=== PATIENT | female | born 1950 | race Caucasian/White ===

== ENCOUNTER → 2017-03-30 | Outpatient (CLI) | payer MEDICARE, OTHER ==
[~2017-03-30] MED LIST: AMBIEN 5MG TABLE5 MG PO; ANUSOL-HC SUPPO25 MG RC; ARIMIDEX1 MG PO; ARMOUR THYROID90 MG PO; ASPIRIN 81M81 MG/TA2 PO; CALCIUM 600/VIT1 CAP PO; CIPRO 500MG TA500 MG PO; CO Q-1050 MG PO; DHEA25 MG PO; ESTRADIOL CREAM TOP; FISH OIL SUPER1 SGL PO; MELATONIN3 M1 PO; NIASPAN 500MG500 MG; NORCO 325 MG-7.1 TAB PO; PERCOCET 325 MG1 TA2 PO; PERCR 7.5 PO; PRILOSEC 20MG20 MG PO; PROGESTERONE TOP; RED RICE YEAST E0.4%; RESVERATROL; TESTOSTERONE CREAM TOP; TOVIAZ8 MG PO; VITAMIN D31000 IU PO; VITAMIND3 5000 PO; ZOFRAN8 MG PO
== END ==
LOC: MC.RAD 03-23 07:20
DX: Z12.31 Encounter for screening mammogram for malignant neoplasm of breast (principal); Z85.3 Personal history of malignant neoplasm of breast

== ENCOUNTER → 2017-10-16 | Outpatient (CLI) | payer MEDICARE, OTHER ==
[2017-10-16] VITALS (10 sets, daily range): BP systolic 138–161; BP diastolic 79–110; PULSE 63–75
[~2017-10-16] VITALS: Ht 162.6 cm; Wt 79.1 kg
== END ==
LOC: COL.RAD 06:24
DX: C50.511 Malignant neoplasm of lower-outer quadrant of right female breast (principal); M89.9 Disorder of bone, unspecified; M85.80 Other specified disorders of bone density and structure, unspecified site; Z98.890 Other specified postprocedural states; Z92.21 Personal history of antineoplastic chemotherapy; Z92.3 Personal history of irradiation
CPT/HCPCS: 27433

== ENCOUNTER → 2018-04-02 | Outpatient (CLI) | payer MEDICARE, OTHER | LOC: MC.RAD 09:10 | DX: Z12.31 Encounter for screening mammogram for malignant neoplasm of breast (principal); Z85.3 Personal history of malignant neoplasm of breast ==

== ENCOUNTER → 2019-06-17 | Outpatient (CLI) | payer MEDICARE, OTHER | LOC: COL.RAD 13:06 | DX: Z13.89 Encounter for screening for other disorder (principal); C50.511 Malignant neoplasm of lower-outer quadrant of right female breast; M79.89 Other specified soft tissue disorders; M25.562 Pain in left knee ==

== ENCOUNTER → 2020-06-21 | Outpatient (CLI) | payer MEDICARE, OTHER | LOC: COL.RAD 12:10 | DX: J90 Pleural effusion, not elsewhere classified (principal); C79.51 Secondary malignant neoplasm of bone; R92.2 Inconclusive mammogram; Z85.3 Personal history of malignant neoplasm of breast | CPT/HCPCS: Q9967 ==

== ENCOUNTER 2020-12-17 09:32 | Inpatient (IN) | payer MEDICARE, OTHER ==
[~2020-12-17] VITALS: Ht 162.6 cm; Wt 59.1 kg
[~2020-12-17 09:32] MED LIST changes: +CALCIUM CITRAT200 M2 PO; +DINO-LIFE1 CTB PO; +FORTAMET500 M1 PO; +FREESTYLE PREC1 EAC5 MC; +GLUCOSE TEST ST1 DEV MC; +LANCETS MC; +MELATONIN5 M1 PO; +ONE-A-DAY ESSE1 EACH PO; +PIQRAY1 EACH PO; +VITAMIN D 400400 IU PO; +VITAMIN D31000 I1 PO; +XARELTO15 MG PO; +XARELTO20 MG PO
[2020-12-17 10:21] LABS: BASO % 0.4 % (0.0-2.0); EOS # 0.1 (0.0-0.7); EOS % 0.9 % (0-4.0); GRAN # 8.8 (1.4-6.5); GRAN % 86.2 % (42.2-75.2); HEMOGLOBIN 12.2 g/dl (12.5-16.0); LYMPH # 0.5 (1.2-3.4); LYMPH % 5.1 % (20.0-51.0); MEAN CELL VOLUME 89 fl (80.0-100.0); MEAN CORPUSCULAR HEMOGLOBIN 30 pg (27.0-31.0); MEAN CORPUSCULAR HGB CONC 34 g/dl (33.0-37.0); MEAN PLATELET VOLUME 9.2 fl (7.4-10.4); MONO # 0.7 (0.1-0.6); MONO % 6.5 % (1.7-9.3); PLATELET COUNT 165 K/mm3 (130-400); RED BLOOD COUNT 4.04 M/mm3 (4.10-5.30); REDCELL DISTRIBUTION WIDTH-CV 13.6 % (11.5-14.5)
[2020-12-17 10:27] LABS: ALBUMIN 4.3 gm/dL (3.5-5.0); CALCIUM 9.4 mg/dL (8.4-10.2); CREATININE, serum 1.38 (0.52-1.25); HEMATOCRIT 36.1 % (37.0-47.0); POTASSIUM 4.4 mmol/L (3.4-5.0); TOTAL PROTEIN 7.2 gm/dL (6.4-8.2)
[2020-12-17 14:22] LABS: COLLECTION METHOD CLEAN CATCH
[2020-12-17 14:30] LABS: MUCOUS Present /lpf; PH 5 (5-8); SQUAMOUS EPITHELIAL 0-2 /hpf; URINE APPEARANCE Hazy; URINE BACTERIA Rare /hpf; URINE BILIRUBIN Negative (NEGATIVE); URINE BLOOD 1+ (NEGATIVE); URINE COLOR Yellow; URINE GLUCOSE 1+ (NEGATIVE); URINE KETONE 2+ (NEGATIVE); URINE LEUKOCYTE ESTERASE 1+ (NEGATIVE); URINE NITRATE Negative (NEGATIVE); URINE PROTEIN(semi-quant) 2+ (NEGATIVE); URINE UROBILINOGEN Negative (NEGATIVE)
[2020-12-17 14:36] LABS: BASO % 0.4 % (0.0-2.0); EOS % 0.3 % (0-4.0); GRAN # 9.4 (1.4-6.5); GRAN % 87.2 % (42.2-75.2); HEMATOCRIT 35.8 % (37.0-47.0); LYMPH # 0.7 (1.2-3.4); LYMPH % 6.1 % (20.0-51.0); MEAN CELL VOLUME 90 fl (80.0-100.0); MEAN CORPUSCULAR HEMOGLOBIN 30 pg (27.0-31.0); MEAN CORPUSCULAR HGB CONC 34 g/dl (33.0-37.0); MEAN PLATELET VOLUME 8.8 fl (7.4-10.4); MONO # 0.5 (0.1-0.6); MONO % 4.9 % (1.7-9.3); PLATELET COUNT 161 K/mm3 (130-400); RED BLOOD COUNT 3.96 M/mm3 (4.10-5.30); REDCELL DISTRIBUTION WIDTH-CV 13.9 % (11.5-14.5)
[2020-12-17 14:45] LABS: CALCIUM 9.3 mg/dL (8.4-10.2); CREATININE, serum 1.32 (0.52-1.25); POTASSIUM 4.4 mmol/L (3.4-5.0)
[2020-12-17] MEDS ORDERED: PRILOSEC 20MG20 MG PO (16:18)
[2020-12-17 16:59] VITALS: BP 161/67; PULSE 81; TEMP 100.4
--- NOTE | 2020-12-17 18:19 | NUR ---
Pt arrived to room 314. She is A/O x4. Her breathing is even and unlabored on RA. Pt denies SOB. Currently denies any N/V. Pt is shaky but denies pain. HR tachy. IV to LAC flushes without complications. POC discussed with patient who verbalizes understanding. No needs at this time. Call light within reach.
--- NOTE | 2020-12-17 20:30 | NUR ---
Initial shift assessment done- denies pain, denies SOB, denies nausea/vomiting- flushed, was just given Tylenol at shift change for a temp of 100.4,, states she just feels weak,tired,, IV fluids of LR at 80cc/hr
[2020-12-17 20:55] VITALS: BP 96/45; PULSE 83; TEMP 98.3
[2020-12-18] VITALS (10 sets, daily range): BP systolic 95–154; BP diastolic 43–96; PULSE 92–113; TEMP 97.8–102.6
--- NOTE | 2020-12-18 01:00 | NUR ---
Having low grade fevers with chills, Tylenol given--Silva RUSSO given a call regarding urine results and vitals-- will start on Rocephin.
--- NOTE | 2020-12-18 04:20 | NUR ---
Lab called with results of positive blood cultures, gm neg rods,, e.coli,, Silva RUSSO notified.
--- NOTE | 2020-12-18 05:56 | NUR ---
Temp 98.0,, resting quietly-
[2020-12-18 06:15] LABS: HEMOGLOBIN 10.1 g/dl (12.5-16.0); MEAN CELL VOLUME 88 fl (80.0-100.0); MEAN CORPUSCULAR HEMOGLOBIN 30 pg (27.0-31.0); MEAN CORPUSCULAR HGB CONC 34 g/dl (33.0-37.0); MEAN PLATELET VOLUME 9.1 fl (7.4-10.4); PLATELET COUNT 132 K/mm3 (130-400); RED BLOOD COUNT 3.38 M/mm3 (4.10-5.30); REDCELL DISTRIBUTION WIDTH-CV 13.9 % (11.5-14.5)
[2020-12-18 06:18] LABS: ALBUMIN 3.2 gm/dL (3.5-5.0); BILIRUBIN,TOTAL 0.6 mg/dL (0.0-1.0); CALCIUM 8.2 mg/dL (8.4-10.2); CREATININE, serum 1.52 (0.52-1.25); POTASSIUM 3.9 mmol/L (3.4-5.0); TOTAL PROTEIN 5.8 gm/dL (6.4-8.2)
[2020-12-18 06:35] LABS: HEMATOCRIT 29.8 % (37.0-47.0)
--- NOTE | 2020-12-18 08:30 | NUR ---
Shift assessment complete. Pt up to restroom independently, gait steady. LR running to left AC, IV site w/o S/S complication. A&Ox4. Heart RRR. Lungs CTA. Left leg with mild swelling, no redness/tenderness. Afebrile. Denies N/V at this time but reports worse when eating. Refuses breakfast at this time. Call light in reach.
[2020-12-18 08:32] LABS: ANISOCYTOSIS 1+; BAND 25 % (0-10); LYMPHOCYTE 3 % (20.0-51.0); NEUTROPHILS 68 % (42.0-75.2); PLATELET ESTIMATE NORMAL (NORMAL)
--- NOTE | 2020-12-18 10:10 | NUR ---
SW met with patient to conduct intake assessment. Patient lives at home in [place] with her Serge ([phone]). Serge is patient's DPOA-HC, and paperwork is on file. Patient sees Dr. Hunt as PCP and uses [facility] for pharmacy needs. Patient plans to return go to her daughter's house for a couple of days after discharge. This was onfirmed in person with daughter Charla (P#[phone]). Patient reported that her is anxious and dramatic, and this is why she will be staying with her daughter. Patient denies questions or concerns at this time. Patient will most likely discharge today 12/18.
--- NOTE | 2020-12-18 11:35 | NUR ---
Cat Swamper visited and offered support with patient. Nothing else needed at this time.
--- NOTE | 2020-12-18 18:03 | NUR ---
Pt rested in room w/o complaint all day. Did have one fever of 102.6 at 1600. Down to 99.9 at 1700 with tylenol. Daughter updated during in-person visit today.
--- NOTE | 2020-12-18 20:30 | NUR ---
Initial shift assessment done- denies pain, temp 98.9, denies SOB, Up to bathroom with standby assist-steady on feet, IV fluids of NS with 20MEQ KCL at 75cc/hr- States overall feeling better-no chills.
--- NOTE | 2020-12-18 22:05 | NUR ---
Pt chilling, flushed, temp 101.1,, tylenol given as ordered. Rocephin IV given as ordered at this time.
[2020-12-19 03:50] VITALS: BP 107/52; PULSE 85; TEMP 98.2
--- NOTE | 2020-12-19 05:31 | NUR ---
Up to bathroom, steady on feet, temp 98.8,, no requests
[2020-12-19 08:35] LABS: HEMATOCRIT 36.5 % (37.0-47.0); HEMOGLOBIN 11.7 g/dl (12.5-16.0); MEAN CELL VOLUME 94 fl (80.0-100.0); MEAN CORPUSCULAR HEMOGLOBIN 30 pg (27.0-31.0); MEAN CORPUSCULAR HGB CONC 32 g/dl (33.0-37.0); MEAN PLATELET VOLUME 9.6 fl (7.4-10.4); PLATELET COUNT 132 K/mm3 (130-400); RED BLOOD COUNT 3.88 M/mm3 (4.10-5.30); REDCELL DISTRIBUTION WIDTH-CV 14.3 % (11.5-14.5)
[2020-12-19 08:40] LABS: ALBUMIN 3.7 gm/dL (3.5-5.0); BILIRUBIN,TOTAL 0.7 mg/dL (0.0-1.0); CALCIUM 8.3 mg/dL (8.4-10.2); CREATININE, serum 1.3 (0.52-1.25); POTASSIUM 4.1 mmol/L (3.4-5.0); TOTAL PROTEIN 6.6 gm/dL (6.4-8.2)
[2020-12-19 08:53] VITALS: BP 144/69; PULSE 106; TEMP 99.3
--- NOTE | 2020-12-19 09:12 | NUR ---
Assessment completed, alert/oriented, vital signs stable / running intermittent low grade fevers, reporting headache and general malaise, Tylenol given per patient request, + Blood cx were reported to hospitalist, heart RRR, lungs CTA, tolerting PO fluid fair, IVF infusing, denies other needs at thistime, call light in reach
[2020-12-19 11:36] VITALS: BP 105/56; PULSE 87; TEMP 98.8
[2020-12-19 16:22] VITALS: BP 122/64; PULSE 96; TEMP 98.6
[2020-12-19 20:00] VITALS: BP 107/51; PULSE 103; TEMP 98.7
--- NOTE | 2020-12-19 20:00 | NUR ---
Assessment complete. At this time patient is resting in bed with NS and 20 meq K running into left a/c IV at 75 ml/hr. She is alert and oriented with no complaints of pain. Lung sounds are clear, HR normal/regular. Abdomen is slightly distended and firm but all bowel sounds are audible. Call light in reach, will continue to monitor.
--- NOTE | 2020-12-20 | NUR ---
Patient's temperature is 101.9 at this time. 650 mg PRN Tylenol administered. Will continue to monitor.
[2020-12-20 00:24] VITALS: BP 140/70; PULSE 109; TEMP 101.9
[2020-12-20 03:37] VITALS: BP 118/58; PULSE 87; TEMP 97.5
[2020-12-20 07:38] VITALS: BP 139/68; PULSE 84; TEMP 98.3
--- NOTE | 2020-12-20 07:43 | NUR ---
Assessment completed, alert/oriented, vital signs stable/continues to run intermittent fever overnight, she is feeling better and afebrile at this time, denies pain at this time, still reports some abdominal discomfort at times, denies any further N/V, heart RRR, lungs CTA/ no resp.difficulty noted, she is tolerating PO intake better and is ordering breakfast, denies other needs at this time
[2020-12-20 08:16] LABS: MEAN CORPUSCULAR HGB CONC 33 g/dl (33.0-37.0); MEAN PLATELET VOLUME 9.6 fl (7.4-10.4); PLATELET COUNT 117 K/mm3 (130-400); RED BLOOD COUNT 3.34 M/mm3 (4.10-5.30)
[2020-12-20 08:21] LABS: HEMATOCRIT 29.8 % (37.0-47.0); HEMOGLOBIN 9.9 g/dl (12.5-16.0); MEAN CORPUSCULAR HEMOGLOBIN 30 pg (27.0-31.0)
[2020-12-20 08:22] LABS: MEAN CELL VOLUME 89 fl (80.0-100.0)
[2020-12-20 08:32] LABS: ALBUMIN 2.7 gm/dL (3.5-5.0); BILIRUBIN,TOTAL 0.3 mg/dL (0.0-1.0); POTASSIUM 3.8 mmol/L (3.4-5.0); TOTAL PROTEIN 5.4 gm/dL (6.4-8.2)
[2020-12-20 09:31] LABS: BAND 11 % (0-10); EOSINOPHIL 1 % (0-4); LYMPHOCYTE 8 % (20.0-51.0); METAMYELOCYTE 1 % (0-0); NEUTROPHILS 68 % (42.0-75.2); NUCLEATED RED BLOOD CELL 1 (0-6); PLATELET ESTIMATE DECREASED (NORMAL)
[2020-12-20 11:57] VITALS: BP 128/68; PULSE 92; TEMP 98
--- NOTE | 2020-12-20 13:57 | NUR ---
First visit from the chief radiologic technologist. No needs right now.
[2020-12-20 16:28] VITALS: BP 117/47; PULSE 100; TEMP 99.6
--- NOTE | 2020-12-20 20:00 | NUR ---
Assessment complete. Patient complains of nausea at this time and PRN Reglan is administered. She states her pain is managed well at this time. IV fluids infusing into right a/c IV. No new concerns at this time. Call light in reach
[2020-12-20 20:44] VITALS: BP 130/74; PULSE 108; TEMP 101.8
[2020-12-21] VITALS (11 sets, daily range): BP systolic 103–124; BP diastolic 53–67; PULSE 77–93; TEMP 97.6–99.7
[2020-12-21 07:22] LABS: HEMOGLOBIN 10.6 g/dl (12.5-16.0); MEAN CELL VOLUME 90 fl (80.0-100.0); MEAN CORPUSCULAR HEMOGLOBIN 30 pg (27.0-31.0); MEAN CORPUSCULAR HGB CONC 34 g/dl (33.0-37.0); MEAN PLATELET VOLUME 10.3 fl (7.4-10.4); PLATELET COUNT 146 K/mm3 (130-400); REDCELL DISTRIBUTION WIDTH-CV 14.3 % (11.5-14.5)
[2020-12-21 07:29] LABS: HEMATOCRIT 31.4 % (37.0-47.0)
[2020-12-21 07:32] LABS: ALBUMIN 3.1 gm/dL (3.5-5.0); BILIRUBIN,TOTAL 0.4 mg/dL (0.0-1.0); CALCIUM 8.2 mg/dL (8.4-10.2); CREATININE, serum 0.95 (0.52-1.25); POTASSIUM 3.6 mmol/L (3.4-5.0); TOTAL PROTEIN 5.9 gm/dL (6.4-8.2)
[2020-12-21 08:11] LABS: BAND 4 % (0-10); EOSINOPHIL 5 % (0-4); LYMPHOCYTE 11 % (20.0-51.0); METAMYELOCYTE 1 % (0-0); NEUTROPHILS 66 % (42.0-75.2); PLATELET ESTIMATE NORMAL (NORMAL); SCHISTOCYTES 1+
--- NOTE | 2020-12-21 10:12 | NUR ---
Patient is going down for Csyto with stent placement at this time, consent signs, IVF and IV Pepcid given
--- NOTE | 2020-12-21 20:00 | NUR ---
Assessment complete. Patient is much more well-appearing tonight when compared to last night and states she is feeling so much better. Hare catheter is draining dark yellow urine. She has no complaints of pain and voices no new concerns. She is currently resting in bed. Call light in reach, will continue to monitor.
[2020-12-22 03:11] VITALS: BP 112/64; PULSE 69; TEMP 97.8
--- NOTE | 2020-12-22 07:10 | NUR ---
Patient resting in bed. Assessment as charted. Hare catheter intact with clear, yellow urine. INT to left forearm no reddness noted. Patient denies no pain, reports "feeling better today"
[2020-12-22 08:13] LABS: MEAN CELL VOLUME 88 fl (80.0-100.0); MEAN CORPUSCULAR HGB CONC 33 g/dl (33.0-37.0); MEAN PLATELET VOLUME 9.8 fl (7.4-10.4); PLATELET COUNT 162 K/mm3 (130-400); RED BLOOD COUNT 3.39 M/mm3 (4.10-5.30); REDCELL DISTRIBUTION WIDTH-CV 13.8 % (11.5-14.5)
[2020-12-22 08:15] LABS: CALCIUM 7.8 mg/dL (8.4-10.2); CREATININE, serum 0.94 (0.52-1.25); HEMATOCRIT 29.8 % (37.0-47.0); HEMOGLOBIN 9.9 g/dl (12.5-16.0); MEAN CORPUSCULAR HEMOGLOBIN 29 pg (27.0-31.0)
[2020-12-22 09:03] VITALS: BP 119/80; PULSE 84; TEMP 98.2
--- NOTE | 2020-12-22 09:28 | NUR ---
Pt assessment completed and charted, medications administered per mar. Pt A&O, independent in room, on room air, breathing is even and unlabored. Pt denies dizziness, n/v/d, chest pain, SOB. Pt has mckeon in place, draining clear, yellow urine. LAC INT IV flushes w/o issue. LS cta, HRRR. NO edema noted. Pt denies any further needs. Pt working w/ PT/OT.
--- NOTE | 2020-12-22 10:36 | NUR ---
[employer] Customer Representative attended clinical rounds with the team. After rounds, SW met with the patient to review the discharge plan. The plan is to go to her daughter's home as long as needed then transition home. ZION presented the IM form to the patient. The patient understood and signed the form. The original placed in the chart. The patient did not want a copy.
[2020-12-22 11:02] VITALS: BP 121/58; PULSE 83; TEMP 98
[2020-12-22 11:38] VITALS: BP 118/61; PULSE 82; TEMP 97.7
--- NOTE | 2020-12-22 12:14 | NUR ---
Follow up visit from the clam dredger. No needs right now.
[2020-12-22] MEDS ORDERED: CIPRO 500MG TA500 MG PO (12:31)
[2020-12-22] MEDS ORDERED: ZOFRAN ODT4 MG PO (12:33)
--- NOTE | 2020-12-22 14:15 | NUR ---
Pt mckeon ordered to be dc'd, pt to discharge. Removed by [facility] student w/ this nurse in room. LAC IV removed, cath tip intact, no issues. Pt has voided since removal of mckeon
--- NOTE | 2020-12-22 14:50 | NUR ---
Pt discharged home w/ daughter. Discharge instructions reviewed w/ patient and daughter who verbalized understanding, all questions answered. Pt escorted out via WC. NO further needs.
== END 2020-12-22 14:50 | disposition home or self-care (01) | DRG 854 ==
LOC: COL.ER 09:32 → MEDICAL 15:37
PROVIDERS: Family Medicine; Physician Assistant; Urology
PROC: 0T768DZ Dilation of Right Ureter with Intraluminal Device, Via Natural or Artificial Opening Endoscopic (ICD-10-PCS; principal; 2020-12-21 12:15)
DX: A41.51 Sepsis due to Escherichia coli [E. coli] (principal); C79.51 Secondary malignant neoplasm of bone; N17.9 Acute kidney failure, unspecified; N13.6 Pyonephrosis; R65.20 Severe sepsis without septic shock; C50.919 Malignant neoplasm of unspecified site of unspecified female breast; E11.65 Type 2 diabetes mellitus with hyperglycemia; N32.81 Overactive bladder; R60.1 Generalized edema; Z86.711 Personal history of pulmonary embolism; Z79.01 Long term (current) use of anticoagulants; Z79.84 Long term (current) use of oral hypoglycemic drugs; Z87.891 Personal history of nicotine dependence; Z20.822 Contact with and (suspected) exposure to COVID-19
CPT/HCPCS: OP; 99232-AI; 99233-AI; 99239; C1769; C2617; J0690; J0696; J1100; J1815; J2405; J2704; J3010; J3480; J7030; J7040; J7120; Q9967

== ENCOUNTER 2021-03-29 11:10 | Day surgery (SDC) | payer MEDICARE, OTHER ==
[~2021-03-29] VITALS: Ht 162.6 cm; Wt 59.5 kg
[~2021-03-29 11:10] MED LIST changes: +ZOFRAN ODT4 MG PO
[2021-03-29 12:03] VITALS: BP 115/52; PULSE 80; TEMP 98
[2021-03-29] MEDS ORDERED: LASIX 40MG TABL40 MG PO (12:58)
[2021-03-29] MEDS ORDERED: K-DUR20 MEQ PO (13:00)
[2021-03-29 14:11] VITALS: TEMP 98.9
[2021-03-29 14:20] VITALS: BP 119/60; PULSE 65
--- NOTE | 2021-03-29 14:20 | NUR ---
Patient returns to room 8 per cart from PACU accompanied by Katerin GROVER and is awake and alert. Temp 97.4 and room air sats 99%. Denies pain or nausea. Siderails up x2 and call light in reach. IV fluids infusing via left port a catheter site and is free of redness or swelling. Warm blankets on and allowed to rest.
[2021-03-29 14:35] VITALS: BP 106/55; PULSE 67
--- NOTE | 2021-03-29 14:35 | NUR ---
Resting and denies pain or nausea. Sipping on diet Pepsi.
[2021-03-29 14:50] VITALS: BP 127/62; PULSE 67
--- NOTE | 2021-03-29 14:50 | NUR ---
Eating muffin and denies pain or nausea.
[2021-03-29 15:05] VITALS: BP 133/64; PULSE 61
--- NOTE | 2021-03-29 15:05 | NUR ---
Resting and sipping on diet Pepsi. Continues to deny pain or nausea.
--- NOTE | 2021-03-29 15:20 | NUR ---
Assisted up to the bathroom and is able to void and returns to room. Denies pain or nausea.
--- NOTE | 2021-03-29 15:35 | NUR ---
Port a catheter flushed with normal saline and Heparin per protocol and deaccessed. Site covered with bandaid. Site is free of swelling or redness.
--- NOTE | 2021-03-29 15:50 | NUR ---
Patient is able to dress self.
--- NOTE | 2021-03-29 15:55 | NUR ---
Discharge instructions given and voices understanding of home cares. Provided office number for questions and concerns.
--- NOTE | 2021-03-29 15:59 | NUR ---
Patient dismissed to home driven by spouse and taken to the front door per wheelchair by Katerin GROVER and assisted into vehicle with dismissal instructions in hand.
[2021-04-07] MEDS ORDERED: XARELTO20 MG PO (08:56)
[2021-04-07] MEDS ORDERED: KLOR-CON SPRIN10 MEQ PO (08:59)
[2021-04-07] MEDS ORDERED: ABRAXANE100 MG IV (09:01)
[2021-04-07] MEDS ORDERED: XGEVA120 MG/1.7 SQ (09:02)
== END 2021-03-29 15:59 | disposition home or self-care (01) ==
LOC: SDCO 11:10
DX: N13.0 Hydronephrosis with ureteropelvic junction obstruction (principal); C50.911 Malignant neoplasm of unspecified site of right female breast; C79.51 Secondary malignant neoplasm of bone; D63.0 Anemia in neoplastic disease; N39.46 Mixed incontinence; K21.9 Gastro-esophageal reflux disease without esophagitis; N32.81 Overactive bladder; Z86.711 Personal history of pulmonary embolism; Z79.01 Long term (current) use of anticoagulants; Z79.899 Other long term (current) drug therapy
CPT/HCPCS: C1769; C2617; J0690; J1644; J2405; J2704; J3010; J7120

== ENCOUNTER → 2021-04-12 | Outpatient (CLI) | payer MEDICARE, OTHER ==
[~2021-04-12] VITALS: Ht 162.6 cm; Wt 62.5 kg
[~2021-04-12] MED LIST changes: +ABRAXANE100 MG IV; +K-DUR20 MEQ PO; +KEYTRUDA25 MG/ML IV; +KLOR-CON SPRIN10 MEQ PO; +LASIX 40MG TABL40 MG PO; +XGEVA120 MG/1.7 SQ
[2021-04-12 07:05] VITALS: BP 117/79; PULSE 87
[2021-04-12 07:48] VITALS: BP 154/88; PULSE 90
== END ==
LOC: COL.RAD 06:45
DX: C50.511 Malignant neoplasm of lower-outer quadrant of right female breast (principal); R59.9 Enlarged lymph nodes, unspecified
CPT/HCPCS: 32140

== ENCOUNTER → 2021-06-23 | Outpatient (CLI) | payer MEDICARE, OTHER | LOC: MC.RAD 11:13 | DX: Z12.31 Encounter for screening mammogram for malignant neoplasm of breast (principal); Z98.890 Other specified postprocedural states; Z92.3 Personal history of irradiation; Z98.82 Breast implant status ==

== ENCOUNTER → 2021-06-28 | Outpatient (CLI) | payer MEDICARE, OTHER | LOC: MC.RAD 11:00 | DX: R92.1 Mammographic calcification found on diagnostic imaging of breast (principal) ==

== ENCOUNTER 2021-09-22 13:37 | Day surgery (SDC) | payer MEDICARE, OTHER ==
[~2021-09-22] VITALS: Ht 162.6 cm; Wt 64.0 kg
[~2021-09-22 13:37] MED LIST changes: -KEYTRUDA25 MG/ML IV
[2021-09-22] MEDS ORDERED: KEYTRUDA25 MG/ML IV (14:14)
[2021-09-22 14:31] VITALS: BP 126/64; PULSE 71; TEMP 98
[2021-09-22 16:30] VITALS: BP 143/78; PULSE 70; TEMP 97.8
--- NOTE | 2021-09-22 16:30 | NUR ---
Patient arrived back into bay 8. Report received from LENORE Alberto. Patient doing well. Requesting diet pepsi and muffin. Tolerated both well with no complaint of nausea or vomiting. Patient at bedside.
[2021-09-22 16:45] VITALS: BP 149/82; PULSE 72; TEMP 97.8
--- NOTE | 2021-09-22 16:50 | NUR ---
Patient up to restroom. Up with stand by assist. Steady gait.
[2021-09-22 16:56] VITALS: BP 143/78; PULSE 70; TEMP 97.8
[2021-09-22 17:00] VITALS: BP 142/87; PULSE 77
--- NOTE | 2021-09-22 17:00 | NUR ---
Patient voided successful, noted scant blood drainage. Pad given. Patient got dressed after tolerating food and drink and voiding successfully. Stating no pain.
--- NOTE | 2021-09-22 17:05 | NUR ---
Discharge instructions went through with patient and patient's . Questions answered. Verbalized understanding to education. Patient and patient's escorted to emergency department.
== END 2021-09-22 17:10 | disposition home or self-care (01) ==
LOC: SDCO 13:37
DX: N13.0 Hydronephrosis with ureteropelvic junction obstruction (principal); C50.919 Malignant neoplasm of unspecified site of unspecified female breast; C79.51 Secondary malignant neoplasm of bone; K21.9 Gastro-esophageal reflux disease without esophagitis; D64.9 Anemia, unspecified; N32.81 Overactive bladder; Z85.830 Personal history of malignant neoplasm of bone; Z79.4 Long term (current) use of insulin; Z79.899 Other long term (current) drug therapy; Z79.01 Long term (current) use of anticoagulants; Z92.21 Personal history of antineoplastic chemotherapy
CPT/HCPCS: C2617; J0690; J1100; J2405; J2704; J3010; J7120

== ENCOUNTER → 2022-06-26 | Outpatient (CLI) | payer MEDICARE, OTHER ==
[~2022-06-26] MED LIST changes: +KEYTRUDA25 MG/ML IV
== END ==
LOC: MC.RAD 10:06
DX: Z12.31 Encounter for screening mammogram for malignant neoplasm of breast (principal)

== ENCOUNTER 2022-12-26 06:27 | Day surgery (SDC) | payer MEDICARE, OTHER ==
[~2022-12-26] VITALS: Ht 162.6 cm; Wt 69.1 kg
[2022-12-26 07:27] VITALS: BP 118/64; PULSE 76; TEMP 98
[2022-12-26] MEDS ORDERED: PHARMASSURE ZIN50 MG PO (07:40)
[2022-12-26] MEDS ORDERED: CALCIUM 600MG+D1 TAB PO (07:40)
[2022-12-26] MEDS ORDERED: XGEVA120 MG/1.7 SQ (07:43)
[2022-12-26 09:45] VITALS: BP 118/46; PULSE 64; TEMP 97.9
[2022-12-26 10:00] VITALS: BP 115/75; PULSE 64
[2022-12-26 10:15] VITALS: BP 114/74; PULSE 66
[2022-12-26 10:30] VITALS: BP 110/54; PULSE 64
[2022-12-26 10:40] VITALS: BP 112/56; PULSE 64
--- NOTE | 2022-12-26 11:00 | NUR ---
0945 RETURNS TO ROOM 7. AWAKE, ALERT. RESP CLEAR, UNLABORED. HOB ELEVATED 40 DEGREES. VITAL SIGNS OBTAINED. DENIES PAIN OR URINARY URGENCY. CALL LIGHT AT SIDE. IN ROOM. 1000 TOLERATES JUICE AND MUFFIN WITHOUT NAUSEA 1015 AWAKE, ALERT. CONVERSES WITH . 1030 DONTINUES TO DENY DISCOMFORT OR URINARY URGENCY 1037 DISCHARGE INSTRUCTIONS REVIEWED. PATIENT AND VERBALIZE UNDERSTANDING. COPY PROVIDED IN DISCHARGE FOLDER 1045 SITS ON EDGE OF BED. DRESSES SELF. 1050 AMBULATES TO BATHROOM WITH STANDBY ASSIST. ADMITS TO VOIDING WITHOUT DIFFICULTY. REPORTS URINE IS LIGHT PINK
== END 2022-12-26 11:00 | disposition home or self-care (01) ==
LOC: SDCO 06:27
DX: N13.0 Hydronephrosis with ureteropelvic junction obstruction (principal); K21.9 Gastro-esophageal reflux disease without esophagitis; Z79.899 Other long term (current) drug therapy
CPT/HCPCS: C1769; C2617; J0690; J1885; J2405; J2704; J7120; Q9967

== ENCOUNTER 2023-12-04 11:34 | Day surgery (SDC) | payer MEDICARE ==
[~2023-12-04] VITALS: Ht 162.6 cm; Wt 71.7 kg
[~2023-12-04 11:34] MED LIST changes: +CALCIUM 600MG+D1 TAB PO; +LINZESS72 MCG PO; +LR 1,000 ML IV SCH; +PHARMASSURE ZIN50 MG PO
[2023-12-04] MEDS ORDERED: Lidocaine PF 2% (20 MG/ML) 5 ML VIAL IV ONE (12:17)
[2023-12-04] MEDS ORDERED: NS 10 ML VIAL IV ONE (12:17)
[2023-12-04] MEDS ORDERED: dexAMETHasone 10 MG/ML VIAL IV ONE (12:17)
[2023-12-04] MEDS ORDERED: Ondansetron 4 MG/2 ML VIAL IV ONE (12:17)
[2023-12-04] MEDS ORDERED: fentaNYL 50 MCG/ML 2 ML VIAL IV ONE (12:17)
[2023-12-04] MEDS ORDERED: Glycopyrrolate 0.2 MG/ML 1 ML VIAL IV ONE (12:17)
[2023-12-04] MEDS ORDERED: Succinylcholine PF 100 MG/5 ML SYRINGE/POLY AMP IV ONE (12:31)
[2023-12-04] MEDS ORDERED: Lidocaine PF 2% (20 MG/ML) 5 ML VIAL ONE (12:31)
[2023-12-04] MEDS ORDERED: GEMTESA75 MG PO (12:35)
[2023-12-04] MEDS ORDERED: CO Q 10 (12:36)
[2023-12-04] MEDS ORDERED: OMEGA-31 SGL PO (12:38)
[2023-12-04] MEDS ORDERED: TUMERIC (12:38)
[2023-12-04 12:45] VITALS: BP 131/70; PULSE 68; TEMP 97.9
[2023-12-04] MEDS ORDERED: Lidocaine 2% (20 MG/ML) 20 ML UROJET UR ONE (12:49)
[2023-12-04] MEDS ORDERED: MACROBID 1100 MG/CAP PO (13:33)
[2023-12-04] MEDS ORDERED: HYDROmorphone 2 MG/1 ML VIAL IV PRN (14:00)
[2023-12-04] MEDS ORDERED: fentaNYL 50 MCG/ML 2 ML VIAL IV PRN (14:00)
[2023-12-04] MEDS ORDERED: Ondansetron 4 MG/2 ML VIAL IV PRN (14:00)
[2023-12-04 14:05] VITALS: BP 104/88; PULSE 64; TEMP 97.6
[2023-12-04 14:20] VITALS: BP 117/71; PULSE 60
[2023-12-04 14:35] VITALS: BP 126/58; PULSE 64
[2023-12-04 14:55] VITALS: BP 109/73; PULSE 64
--- NOTE | 2023-12-04 15:05 | NUR ---
1405 RETURNS TO ROOM 1 PER CART. AWAKE, ALERT. RESP UNLABORED. HOB ELEVATED 50 DEGREES. DENIES ABD PAIN OR URINARY URGENCY. VITAL SIGNS OBTAINED. CALL LIGHT AT SIDE 1420 TOLERATES PO JUICE WITHOUT NAUSEA 1435 HERE 1440 TOLERATES PO MUFFIN WITHOUT NAUSEA DISCHARGE INSTRUCTIONS REVIEWED. PATIENT VERBALIZES UNDERSTANDING. COPY PROVIDED IN DISCHARGE FOLDER 1072 SITS ON EDGE OF BED. DRESSES SELF, THEN AMBULATES TO BATHROOM WITH STANDBY ASSIST. ADMITS TO VOIDING WITHOUT PAIN OR DIFFICULTY
== END 2023-12-04 15:05 | disposition home or self-care (01) ==
LOC: SDCO 11:34
DX: N13.0 Hydronephrosis with ureteropelvic junction obstruction (principal); N21.0 Calculus in bladder; Z85.830 Personal history of malignant neoplasm of bone; Z85.3 Personal history of malignant neoplasm of breast
CPT/HCPCS: C1769; C2617; J0330; J0690; J1100; J2405; J2704; J3010; J7120

== ENCOUNTER → 2024-03-13 | Day surgery (SDC) | payer MEDICARE, OTHER ==
[~2024-03-13] VITALS: Ht 162.6 cm; Wt 71.0 kg
[~2024-03-13] MED LIST changes: +CO Q 10; +GEMTESA75 MG PO; +Glycopyrrolate 0.2 MG/ML 1 ML VIAL IV ONE; +Hyoscyamine 0.125 MG Sublingual TAB SL PRN; +LR 1,000 ML IV PRN; +Lidocaine 2% (20 MG/ML) 20 ML UROJET UR ONE; +Lidocaine PF 2% (20 MG/ML) 5 ML VIAL IV ONE; +MACROBID 1100 MG/CAP PO; +OMEGA-31 SGL PO; +Ondansetron 4 MG/2 ML VIAL IV ONE; +Propofol 10 MG/ML 10 ML VIAL IV ONE; +TUMERIC; +ceFAZolin 2 G VIAL IV ONE; +oxyCODONE/Acetaminophen 5-325 MG TAB PO PRN
[2024-03-17 14:09] VITALS: BP 125/74; PULSE 72; TEMP 98.3
--- NOTE | 2024-03-17 14:27 | NUR ---
Due to downtime, documentation completed post-care by Tyesha Moreno RN. Refer to scanned fowntime paper documentation for full care.
== END ==
LOC: SDCO 12:36
DX: N13.0 Hydronephrosis with ureteropelvic junction obstruction (principal); K21.9 Gastro-esophageal reflux disease without esophagitis; Z85.3 Personal history of malignant neoplasm of breast; Z86.711 Personal history of pulmonary embolism; Z85.830 Personal history of malignant neoplasm of bone; Z79.01 Long term (current) use of anticoagulants; Z79.899 Other long term (current) drug therapy
CPT/HCPCS: C1769; C2617; J0690; J2405; J2704; J7120

== ENCOUNTER 2024-05-29 13:55 | Day surgery (SDC) | payer MEDICARE, OTHER ==
[~2024-05-29] VITALS: Ht 162.6 cm; Wt 71.2 kg
[~2024-05-29 13:55] MED LIST changes: -Glycopyrrolate 0.2 MG/ML 1 ML VIAL IV ONE; -Hyoscyamine 0.125 MG Sublingual TAB SL PRN; -LR 1,000 ML IV PRN; -Lidocaine 2% (20 MG/ML) 20 ML UROJET UR ONE; -Lidocaine PF 2% (20 MG/ML) 5 ML VIAL IV ONE; +Meclizine 25 MG TAB PO SCH; -Ondansetron 4 MG/2 ML VIAL IV ONE; -Propofol 10 MG/ML 10 ML VIAL IV ONE; -ceFAZolin 2 G VIAL IV ONE; -oxyCODONE/Acetaminophen 5-325 MG TAB PO PRN
[2024-05-29 15:01] VITALS: BP 138/66; PULSE 75; TEMP 97.1
[2024-05-29] MEDS ORDERED: TRIMPEX100 MG PO (15:08)
[2024-05-29] MEDS ORDERED: TURMERIC500 MG PO (15:08)
[2024-05-29] MEDS ORDERED: THE MEDICINE S200 M2 PO (15:09)
[2024-05-29] MEDS ORDERED: HYDROmorphone 1 MG/1 ML SYRINGE [PACU/SDC ONLY] IV PRN (15:15)
[2024-05-29] MEDS ORDERED: Meperidine 50 MG/ML 1 ML VIAL IV PRN (15:15)
[2024-05-29] MEDS ORDERED: Ondansetron 4 MG/2 ML VIAL IV PRN (15:15)
[2024-05-29] MEDS ORDERED: hydrALAZINE 20 MG/ML 1 ML VIAL IV PRN (15:15)
[2024-05-29] MEDS ORDERED: fentaNYL 50 MCG/ML 1 ML SYRINGE/VIAL [PACU/SDC ONLY] IV PRN (15:15)
[2024-05-29] MEDS ORDERED: Lidocaine 2% (20 MG/ML) 20 ML UROJET UR ONE (15:55)
[2024-05-29 16:45] VITALS: BP 122/72; PULSE 60; TEMP 97.3
[2024-05-29 17:00] VITALS: BP 125/67; PULSE 62
--- NOTE | 2024-05-29 17:20 | NUR ---
1645-PT TO BAY 2 PER CART FROM PACU. REPORT RECEIVED. VS OBTAINED. CALL LIGHT WITHIN REACH. PT TOLERATING ICE CHIPS. 1650-PT TOLERATING JUICE WITHOUT DIFFICULTY. 1705-IV DC'D AT THIS TIME. 1710-DISCHARGE EDUCATION COMPLETED WITH PT AND HER . VERBALIZED UNDERSTANDING OF HOME AND FOLLOW UP CARE. ALL QUESTIONS ANSWERED. DISCHARGE PAPERWORK GIVEN TO THE . 1715-PT ABLE TO DRESS SELF WITHOUT ASSISTANCE. 1720-PT OFF UNIT PER WHEELCHAIR. PT DISCHARGED TO HOME WITH HER PER PERSONAL VEHICLE.
== END 2024-05-29 17:20 | disposition home or self-care (01) ==
LOC: SDCO 13:55
DX: Q62.11 Congenital occlusion of ureteropelvic junction (principal); N21.0 Calculus in bladder; C50.911 Malignant neoplasm of unspecified site of right female breast; C79.51 Secondary malignant neoplasm of bone; K21.9 Gastro-esophageal reflux disease without esophagitis; Z79.899 Other long term (current) drug therapy
CPT/HCPCS: C1769; C2617; J7120

== ENCOUNTER 2024-06-16 07:01 | Emergency (ER) | payer MEDICARE, OTHER ==
[~2024-06-16] VITALS: Ht 162.6 cm; Wt 71.8 kg
[~2024-06-16 07:01] MED LIST changes: -LR 1,000 ML IV SCH; -Meclizine 25 MG TAB PO SCH; +THE MEDICINE S200 M2 PO; +TRIMPEX100 MG PO; +TURMERIC500 MG PO
[2024-06-16] MEDS ORDERED: fentaNYL 50 MCG/ML 2 ML VIAL IV ONE (07:45)
[2024-06-16] MEDS ORDERED: Ketorolac 15 MG/ML VIAL IV ONE (07:45)
[2024-06-16 08:02] VITALS: TEMP 97.5
[2024-06-16 08:19] LABS: BASO % 0.3 % (0.0-2.0); EOS # 0.1 K/mm3 (0.0-0.7); EOS % 2.3 % (0.0-4.0); GRAN # 2.1 K/mm3 (1.4-6.5); GRAN % 67.4 % (42.2-75.2); HEMOGLOBIN 11.2 g/dl (12.5-16.0); LYMPH # 0.6 K/mm3 (1.2-3.4); LYMPH % 18.7 % (20.0-51.0); MEAN CELL VOLUME 88 fl (80.0-100.0); MEAN CORPUSCULAR HEMOGLOBIN 29 pg (27-31); MEAN CORPUSCULAR HGB CONC 32 g/dl (33.0-37.0); MEAN PLATELET VOLUME 9.2 fl (7.4-10.4); MONO # 0.3 K/mm3 (0.1-0.6); PLATELET COUNT 191 K/mm3 (130-400); RED BLOOD COUNT 3.92 M/mm3 (4.10-5.30); REDCELL DISTRIBUTION WIDTH-CV 15.7 % (11.5-14.5)
[2024-06-16 08:20] LABS: HEMATOCRIT 34.6 % (37.0-47.0)
[2024-06-16] MEDS ORDERED: NS 1,000 ML IV ONE (08:30)
[2024-06-16] MEDS ORDERED: Ondansetron 4 MG/2 ML VIAL IV ONE (08:30)
[2024-06-16 08:40] LABS: ALBUMIN 3.7 g/dL (3.4-4.8); BILIRUBIN,TOTAL 0.4 mg/dL (0.2-1.2); C-REACTIVE PROTEIN 0.35 mg/dL (0.00-0.50); CALCIUM 8.7 mg/dL (8.4-10.2); CREATININE, serum 1.07 mg/dL (0.57-1.11); POTASSIUM 3.9 mEq/L (3.5-4.5); TOTAL PROTEIN 6.4 g/dl (6.2-8.1)
[2024-06-16] MEDS ORDERED: Iohexol 300 - 100 ML VIAL IV ONE (09:17)
[2024-06-16] MEDS ORDERED: NS 100 ML IV SCH (09:18)
[2024-06-16 10:18] LABS: COLLECTION METHOD CLEAN CATCH
[2024-06-16 10:42] LABS: PH 7.5 (5.0-8.5); URINE APPEARANCE CLEAR (CLEAR/HAZY); URINE COLOR YELLOW (YELLOW); URINE PROTEIN(semi-quant) NEGATIVE (NEGATIVE)
[2024-06-16 10:43] LABS: URINE BLOOD TRACE-INTACT (NEGATIVE); URINE GLUCOSE TRACE (NEGATIVE); URINE KETONE NEGATIVE (NEGATIVE); URINE NITRATE POSITIVE (NEGATIVE); URINE UROBILINOGEN 0.2 E.U/dL (0.2-1.0)
[2024-06-16] MEDS ORDERED: oxyCODONE/Acetaminophen 5-325 MG TAB PO ONE (11:30)
[2024-06-16] MEDS ORDERED: cefTRIAXone 1 G in Water For Injection,Sterile 10 ML IV ONE (11:30)
[2024-06-16] MEDS ORDERED: CEPHALEXIN500 M1 PO (11:48)
[2024-06-16] MEDS ORDERED: ZOFRAN ODT4 MG PO (11:48)
[2024-06-16] MEDS ORDERED: PERCOCET 325 MG1 TA2 PO (11:48)
[2024-06-16 12:13] VITALS: BP 135/74; PULSE 72
== END 2024-06-16 12:15 | disposition home or self-care (01) ==
LOC: COL.ER 07:01
PROVIDERS: Emergency Medicine
DX: N39.0 Urinary tract infection, site not specified (principal); C79.51 Secondary malignant neoplasm of bone; C50.919 Malignant neoplasm of unspecified site of unspecified female breast
CPT/HCPCS: J0696; J1885; J2405; J3010; J7030; Q9967

== ENCOUNTER 2024-06-30 11:19 | Inpatient (IN) | payer MEDICARE, OTHER ==
[~2024-06-30] VITALS: Ht 162.6 cm; Wt 71.6 kg
[~2024-06-30 11:19] MED LIST changes: +CEPHALEXIN500 M1 PO
[2024-06-30] MEDS ORDERED: NS 1,000 ML IV ONE (11:30)
[2024-06-30 12:12] LABS: ALBUMIN 3.7 g/dL (3.4-4.8); BILIRUBIN,TOTAL 0.3 mg/dL (0.2-1.2); C-REACTIVE PROTEIN 0.24 mg/dL (0.00-0.50); CALCIUM 8.3 mg/dL (8.4-10.2); CREATININE, serum 1.14 mg/dL (0.57-1.11); TOTAL PROTEIN 6.3 g/dl (6.2-8.1)
[2024-06-30 12:13] LABS: BASO % 0.5 % (0.0-2.0); EOS # 0.1 K/mm3 (0.0-0.7); EOS % 1.6 % (0.0-4.0); GRAN # 2.4 K/mm3 (1.4-6.5); GRAN % 66.4 % (42.2-75.2); HEMOGLOBIN 11.2 g/dl (12.5-16.0); LYMPH # 0.8 K/mm3 (1.2-3.4); LYMPH % 22.6 % (20.0-51.0); MEAN CELL VOLUME 90 fl (80.0-100.0); MEAN CORPUSCULAR HEMOGLOBIN 29 pg (27-31); MEAN CORPUSCULAR HGB CONC 32 g/dl (33.0-37.0); MEAN PLATELET VOLUME 9.3 fl (7.4-10.4); MONO # 0.3 K/mm3 (0.1-0.6); MONO % 8.4 % (1.7-9.3); PLATELET COUNT 216 K/mm3 (130-400); RED BLOOD COUNT 3.89 M/mm3 (4.10-5.30); REDCELL DISTRIBUTION WIDTH-CV 15.9 % (11.5-14.5)
[2024-06-30] MEDS ORDERED: Ondansetron 4 MG/2 ML VIAL IV ONE (12:15)
[2024-06-30] MEDS ORDERED: Morphine 4 MG/ML VIAL IV ONE (12:15)
[2024-06-30 12:21] LABS: HEMATOCRIT 34.8 % (37.0-47.0)
[2024-06-30 12:23] LABS: COLLECTION METHOD CLEAN CATCH
[2024-06-30 12:50] LABS: PH 6.5 (5.0-8.5); URINE APPEARANCE CLOUDY (CLEAR/HAZY); URINE BLOOD 2+ (NEGATIVE); URINE COLOR YELLOW (YELLOW); URINE GLUCOSE NEGATIVE (NEGATIVE); URINE KETONE NEGATIVE (NEGATIVE); URINE NITRATE POSITIVE (NEGATIVE); URINE PROTEIN(semi-quant) 1+ (NEGATIVE); URINE UROBILINOGEN 0.2 E.U/dL (0.2-1.0)
[2024-06-30] MEDS ORDERED: PREDNISONE10 MG PO (14:18)
[2024-06-30] MEDS ORDERED: TRULANCE3 MG PO (14:19)
[2024-06-30 17:24] VITALS: BP 154/74; PULSE 54; TEMP 97.2
[2024-06-30] MEDS ORDERED: Ondansetron 4 MG/2 ML VIAL IV PRN (18:00)
[2024-06-30] MEDS ORDERED: Morphine 4 MG/ML VIAL IV PRN (18:00)
[2024-06-30] MEDS ORDERED: oxyCODONE 5 MG TAB PO PRN (18:00)
[2024-06-30 18:07] VITALS: BP_SYST 154
--- NOTE | 2024-06-30 18:12 | NUR ---
Pt complaining of pain to lower back and right flank at 7-8/10. Reports nausea as well as some emesis. PRN zofran and morphine given. Discussed pain goal at this time. Patient reports she would be comfortable getting pain to a /10. Family at bedside. Pt denies further needs at this time. Call light within reach.
[2024-06-30] MEDS ORDERED: Meropenem 500 MG in Water For Injection,Sterile 10 ML IV SCH (18:15)
[2024-06-30] MEDS ORDERED: *Potassium Replacement Protocol MC SCH (18:15)
--- NOTE | 2024-06-30 18:31 | NUR ---
Pt. arrived to the floor. Pt. is A&OX3, assessment complete. INT to lt. ac patent. Pt. reported pain at a 8, given pain meds by LENORE Izquierdo. Pt. denies further needs, call light within reach.
--- NOTE | 2024-06-30 18:45 | NUR ---
Pt resting in bed, states she is feeling much better. Pain now rated 3/10 and no nausea at this time. Pt denies further needs and would like to rest. Family at bedside. Call light within reach.
[2024-06-30 19:47] VITALS: BP 146/85; PULSE 54; TEMP 97.7
[2024-06-30 20:30] VITALS: BP_SYST 146
--- NOTE | 2024-06-30 20:30 | NUR ---
Initial shift assessment done- alert/oriented x4 , pleasant, states pain 3/10 at this time, denies need for pain meds,did help her up to bathroom, voiding clear yellow urine, was nauseated w/activity and vomited totally clear emesis, felt much better, states she does not need the antonausea med at this time, warm blanket given and she would like to sleep-- will call for just standy assist to bathroom.
[2024-07-01] VITALS (13 sets, daily range): BP systolic 99–160; BP diastolic 60–81; PULSE 62–81; TEMP 97.4–98.3
--- NOTE | 2024-07-01 01:15 | NUR ---
Nauseated, had another emesis,clear,, Also states having pain 6/10 to back-will give Zofran and Morphine IV at this time. Up to bathroom, voiding good amounts of very clear light colored urine.VSS
--- NOTE | 2024-07-01 05:12 | NUR ---
Did let Torin BRUCE know of the nausea/emesis she had during the night-- he will look at her chart and call back if any new orders.
[2024-07-01 07:53] LABS: BASO % 0.4 % (0.0-2.0); EOS % 1.1 % (0.0-4.0); GRAN # 1.8 K/mm3 (1.4-6.5); GRAN % 64.3 % (42.2-75.2); HEMOGLOBIN 11.1 g/dl (12.5-16.0); LYMPH # 0.7 K/mm3 (1.2-3.4); LYMPH % 23.6 % (20.0-51.0); MEAN CELL VOLUME 87 fl (80.0-100.0); MEAN CORPUSCULAR HEMOGLOBIN 29 pg (27-31); MEAN CORPUSCULAR HGB CONC 33 g/dl (33.0-37.0); MEAN PLATELET VOLUME 9.3 fl (7.4-10.4); MONO # 0.3 K/mm3 (0.1-0.6); MONO % 10.2 % (1.7-9.3); PLATELET COUNT 207 K/mm3 (130-400); RED BLOOD COUNT 3.89 M/mm3 (4.10-5.30); REDCELL DISTRIBUTION WIDTH-CV 15.4 % (11.5-14.5)
[2024-07-01 07:57] LABS: HEMATOCRIT 33.9 % (37.0-47.0)
--- NOTE | 2024-07-01 08:00 | NUR ---
PATIENT ALERT AND ORIENTED X4. TELEMETRY INPLACE. PATIENT ON ROOM AIR. REPORTS NAUSEA AND UNABLE TO EAT AT THIS TIME. PATIENT HAS LEFT AC IV C/D/I. PATIENT DENIES PAIN AT THIS TIME. PATIENT CALL LIGHT WITHIN REACH. BED AT LOWEST POSITION.
[2024-07-01 08:18] LABS: ALBUMIN 3.4 g/dL (3.4-4.8); CALCIUM 8.2 mg/dL (8.4-10.2); CREATININE, serum 0.86 mg/dL (0.57-1.11); MAGNESIUM 1.9 mg/dL (1.6-2.6); PHOSPHOROUS 2.9 mg/dL (2.3-4.7); POTASSIUM 3.5 mEq/L (3.5-4.5)
[2024-07-01] MEDS ORDERED: Acetaminophen 325 MG TAB PO PRN (08:30)
[2024-07-01] MEDS ORDERED: NS 1,000 ML IV SCH (08:30)
[2024-07-01] MEDS ORDERED: Promethazine 25 MG Rectal SUPP RC PRN (09:15)
--- NOTE | 2024-07-01 10:37 | NUR ---
Initial visit; Patient's daughter thanked Sash Clamp Operator for looking in on on her and her mom. Patient was nauseous though thanked Sash Clamp Operator. Sash Clamp Operator wished her well. Sash Clamp Operator may stop by later.
[2024-07-01] MEDS ORDERED: ZOFRAN ODT8 MG PO (10:38)
[2024-07-01] MEDS ORDERED: PROAIR HFA0.09 MG/AC IH (10:39)
[2024-07-01] MEDS ORDERED: Potassium Bicarbonate/Citrate 20 MEQ Effervescent TAB PO SCH (14:30)
--- NOTE | 2024-07-01 14:59 | NUR ---
Undercollar Maker met with patient to discuss discharge planning. Patient lives in [place] with her , Serge (ph#[phone]) and sees Dr. Hunt for primary care. Patient gets medications from [facility] with no difficulties and does not use any DME. Patient is independent with ADLS including driving. Patient worked with PT/OT and recommendation is to return home. Patient has DPOA-HC in EMR designating Serge and their daughter, Radha. Discharge Plan; Home
[2024-07-02] VITALS (11 sets, daily range): BP systolic 94–145; BP diastolic 60–89; PULSE 68–82; TEMP 97.8–98.3
--- NOTE | 2024-07-02 04:11 | NUR ---
PER PATIENT SHE HAS BEEN SLEEPING WELL WITH NO PAIN OR DISCOMFORT. PATIENT DENIES ANY NEEDS OR COMPLAINTS AT THIS TIME. CALL LIGHT WTIHIN REACH.
--- NOTE | 2024-07-02 07:00 | NUR ---
PATIENT AWAKE AND ALERT, SITTING UP IN BED. BEDSDIE SHIFT REPORT GIVEN. CALL LGIHT WTIHIN REACH. PATINET DENIES ANY NEEDS COMPLAINTS OR PAIN AT THIS TIME.
[2024-07-02 07:37] LABS: BASO % 0.4 % (0.0-2.0); EOS # 0.1 K/mm3 (0.0-0.7); EOS % 2.1 % (0.0-4.0); GRAN # 1.2 K/mm3 (1.4-6.5); GRAN % 48.1 % (42.2-75.2); HEMOGLOBIN 10.4 g/dl (12.5-16.0); LYMPH # 0.9 K/mm3 (1.2-3.4); LYMPH % 35.4 % (20.0-51.0); MEAN CELL VOLUME 87 fl (80.0-100.0); MEAN CORPUSCULAR HEMOGLOBIN 29 pg (27-31); MEAN CORPUSCULAR HGB CONC 33 g/dl (33.0-37.0); MEAN PLATELET VOLUME 9.3 fl (7.4-10.4); MONO # 0.3 K/mm3 (0.1-0.6); MONO % 13.6 % (1.7-9.3); PLATELET COUNT 197 K/mm3 (130-400); RED BLOOD COUNT 3.65 M/mm3 (4.10-5.30); REDCELL DISTRIBUTION WIDTH-CV 15.6 % (11.5-14.5)
[2024-07-02 07:59] LABS: CALCIUM 7.9 mg/dL (8.4-10.2); CREATININE, serum 0.97 mg/dL (0.57-1.11); MAGNESIUM 1.9 mg/dL (1.6-2.6); POTASSIUM 3.9 mEq/L (3.5-4.5)
[2024-07-02 08:05] LABS: HEMATOCRIT 31.8 % (37.0-47.0)
[2024-07-02] MEDS ORDERED: Potassium Bicarbonate/Citrate 20 MEQ Effervescent TAB PO ONE (08:15)
--- NOTE | 2024-07-02 08:20 | NUR ---
PATIENT ALERT AND ORIENTED X4. PATIENT DENIES PAIN AT THIS TIME. DENIES NAUSEA/VOMITING THIS MORNING. PATIENT IV FLUIDS INFUSING PER EMAR. PATIENT SHIFT ASSESSMENT COMPLETED. CALL LIGHT WITHIN REACH. BED AT LOWEST POSITION.
--- NOTE | 2024-07-02 13:26 | NUR ---
Laboratory Clerk attempted to contact patient's , Serge and left a voicemail to review discharge plan.
[2024-07-02] MEDS ORDERED: Meropenem 1 G in Water For Injection,Sterile 20 ML IV SCH (16:30)
--- NOTE | 2024-07-02 19:57 | NUR ---
PATIENT RESTING IN BED WITH TV ON WITH NO FAMILY PRESENT WITH NO ACUTE DISTRESS NOTED. PATIENT ON ROOM AIR. INT TO LEFT AC INTACT WIHT NO COMPLICATIONS NOTED. TELEMETRY INTACT. BEDSIDE SHIFT REPORT COMPLETED WITH SYLVAIN AT THIS TIME. PATIENT DENIES ANY NEEDS. BED IN LOW POSITION WITH WHEELS LOCKED WITH RAILS UP X2 AND CALL LIGHT WITHIN REACH.
--- NOTE | 2024-07-02 22:00 | NUR ---
PATIENT RESTING IN BED WITH TV OFF WITH NO FAMILY PRESENT WITH NO ACUTE DISTRESS NOTED. PATIENT ON ROOM AIR. INT TO LEFT AC INTACT WITH NO COMPLICATIONS NOTED. TELEMETRY INTACT. ASSESSMENT AND MEDICATION ADMINISTRATION COMPLETED AT THIS TIME. PATIENT C/O PAIN. PATIENT STATES PAIN LEVEL IS 5/6 ON SCALE OF 0 TO 10. PO OXYCODONE GIVEN PER MD ORDER. PATIENT TOLERATED WELL. PATIENT DENIES ANY OTHER NEEDS. BED IN LOW POSITION WITH WHEELS LOCKED WITH RAILS UP X2 AND CALL LIGHT WIHTIN REACH.
[2024-07-03] VITALS (7 sets, daily range): BP systolic 100–127; BP diastolic 58–72; PULSE 70–74; TEMP 97.9–98.2
[2024-07-03 05:28] LABS: BASO % 0.4 % (0.0-2.0); EOS # 0.1 K/mm3 (0.0-0.7); GRAN # 1.2 K/mm3 (1.4-6.5); GRAN % 50.1 % (42.2-75.2); HEMOGLOBIN 10.5 g/dl (12.5-16.0); LYMPH # 0.8 K/mm3 (1.2-3.4); LYMPH % 35.3 % (20.0-51.0); MEAN CELL VOLUME 87 fl (80.0-100.0); MEAN CORPUSCULAR HEMOGLOBIN 29 pg (27-31); MEAN CORPUSCULAR HGB CONC 33 g/dl (33.0-37.0); MONO # 0.3 K/mm3 (0.1-0.6); MONO % 10.8 % (1.7-9.3); PLATELET COUNT 171 K/mm3 (130-400); RED BLOOD COUNT 3.66 M/mm3 (4.10-5.30); REDCELL DISTRIBUTION WIDTH-CV 15.7 % (11.5-14.5)
[2024-07-03 05:49] LABS: ALBUMIN 3.1 g/dL (3.4-4.8); CALCIUM 8.1 mg/dL (8.4-10.2); CREATININE, serum 0.91 mg/dL (0.57-1.11); MAGNESIUM 2.2 mg/dL (1.6-2.6); PHOSPHOROUS 2.4 mg/dL (2.3-4.7); POTASSIUM 3.9 mEq/L (3.5-4.5)
--- NOTE | 2024-07-03 09:00 | NUR ---
PATIENT ALERT AND ORIENTED X4. ON ROOM AIR. PATIENT REPORTS PAIN 5/10 TO BACK AREA. AND NAUSEAUS THIS MORNING PRN GIVEN. PATIENT TELEMETRY PLACED.DENIES ANY OTHER NEEDS AT THIS TIME.CALL LIGHT WITHIN REACH.
[2024-07-03] MEDS ORDERED: MERREM IV1 GM IV (14:31)
--- NOTE | 2024-07-03 15:35 | NUR ---
patient discharge packet given. tele d/c. patient IV left inplace per swing bed facility preference. patient waiting personal transportation. call light within reach. bed at lowest position.
--- NOTE | 2024-07-03 16:28 | NUR ---
Assistant Banquet Manager spoke with JANIS Chirinos about patient's discharge needs. Patient will need to be discharged on three times a day IV antibiotics. Hospitalist would recommend swing bed if she qualifies. SW met with patient and reviewed options including [facility] and home IV antibiotics. Patient requested SW explore both options while she considers. SW contacted Kimmy at [facility] and gave referral. SW also contacted Monica at [facility] to give referral. Monica advised they can accept and patient would have a weekly copay of roughly $175. Kimmy at [facility] stated they can also accept today. ZION followed up with patient who prefers [facility]. Patient contacted her daughter for transportation. ZION provided report numbers to Hospitalist and RN. Discharge Plan: [facility] [place] [facility]
--- NOTE | 2024-07-03 16:30 | NUR ---
report was called to nurse taking care of patient at swing bed facility.
== END 2024-07-03 16:07 | disposition swing bed (61) | DRG 690 ==
LOC: COL.ER 11:19 → MEDICAL 12:21
PROVIDERS: Family Medicine; ADMIT Internal Medicine
DX: N39.0 Urinary tract infection, site not specified (principal); Z16.24 Resistance to multiple antibiotics; M81.0 Age-related osteoporosis without current pathological fracture; K21.9 Gastro-esophageal reflux disease without esophagitis; D72.819 Decreased white blood cell count, unspecified; K59.00 Constipation, unspecified; Z20.822 Contact with and (suspected) exposure to COVID-19; B96.5 Pseudomonas (aeruginosa) (mallei) (pseudomallei) as the cause of diseases classified elsewhere; Z85.3 Personal history of malignant neoplasm of breast; Z85.830 Personal history of malignant neoplasm of bone; Z79.899 Other long term (current) drug therapy; Z86.711 Personal history of pulmonary embolism; Z79.01 Long term (current) use of anticoagulants
CPT/HCPCS: J2185; J2270; J2405; J7030; Q3014

== ENCOUNTER → 2024-07-24 | Outpatient (CLI) | payer MEDICARE, OTHER ==
[2024-07-24] VITALS (10 sets, daily range): BP systolic 106–130; BP diastolic 60–82; PULSE 71–86; TEMP 98.1
[~2024-07-24] VITALS: Ht 162.6 cm; Wt 69.8 kg
[~2024-07-24] MED LIST changes: +MERREM IV1 GM IV; +PREDNISONE10 MG PO; +PROAIR HFA0.09 MG/AC IH; +TRULANCE3 MG PO; +ZOFRAN ODT8 MG PO
[2024-07-24 09:37] LABS: INR 1.1 (0.8-3.0); PROTHROMBIN TIME 11.7 SECONDS (9.7-12.8)
== END ==
LOC: COL.RAD 08:11
PROVIDERS: Radiology Diagnostic Radiology
DX: C50.511 Malignant neoplasm of lower-outer quadrant of right female breast (principal)

== ENCOUNTER 2024-07-28 02:53 | Emergency (ER) | payer MEDICARE, OTHER ==
[~2024-07-28] VITALS: Ht 162.6 cm; Wt 70.0 kg
[2024-07-28 02:58] VITALS: TEMP 97.8
[2024-07-28] MEDS ORDERED: Morphine 4 MG/ML VIAL IV ONE ×2 (03:30→06:45)
[2024-07-28] MEDS ORDERED: Ondansetron 4 MG/2 ML VIAL IV ONE (03:30)
[2024-07-28] MEDS ORDERED: LR 1,000 ML IV ONE (03:30)
[2024-07-28 03:57] LABS: BASO % 0.4 % (0.0-2.0); EOS # 0.1 K/mm3 (0.0-0.7); EOS % 3.1 % (0.0-4.0); GRAN # 1.1 K/mm3 (1.4-6.5); GRAN % 47.2 % (42.2-75.2); HEMOGLOBIN 11.1 g/dl (12.5-16.0); LYMPH # 0.8 K/mm3 (1.2-3.4); MEAN CELL VOLUME 87 fl (80.0-100.0); MEAN CORPUSCULAR HEMOGLOBIN 29 pg (27-31); MEAN CORPUSCULAR HGB CONC 33 g/dl (33.0-37.0); MEAN PLATELET VOLUME 9.1 fl (7.4-10.4); MONO # 0.3 K/mm3 (0.1-0.6); MONO % 13.9 % (1.7-9.3); PLATELET COUNT 204 K/mm3 (130-400); RED BLOOD COUNT 3.86 M/mm3 (4.10-5.30); REDCELL DISTRIBUTION WIDTH-CV 14.8 % (11.5-14.5)
[2024-07-28 03:58] LABS: HEMATOCRIT 33.4 % (37.0-47.0)
[2024-07-28 04:18] LABS: TROPONIN-I < 0.010 ng/mL (0.00-0.033)
[2024-07-28 04:26] LABS: ALANINE AMINOTRANSFERASE 11 U/L (0-55); ALBUMIN 3.6 g/dL (3.4-4.8); ALKALINE PHOSPHATASE 70 U/L (40-150); ANION GAP 10 mmol/L (7-16); AST,SGOT 17 U/L (5-34); BILIRUBIN,TOTAL 0.3 mg/dL (0.2-1.2); BLOOD UREA NITROGEN 18 mg/dL (10-20); CALCIUM 10.1 mg/dL (8.4-10.2); CHLORIDE 106 mEq/L (98-107); CREATININE, serum 1.07 mg/dL (0.57-1.11); GLUCOSE 127 mg/dL (70-99); SODIUM 138 mEq/L (136-145); TOTAL PROTEIN 6.6 g/dl (6.2-8.1)
[2024-07-28] MEDS ORDERED: NS 50 ML IV SCH (04:34)
[2024-07-28] MEDS ORDERED: Iohexol 300 - 100 ML VIAL IV ONE (04:34)
[2024-07-28 04:49] LABS: COLLECTION METHOD CLEAN CATCH
[2024-07-28 05:01] LABS: PH 5.5 (5.0-8.5); URINE APPEARANCE CLEAR (CLEAR/HAZY); URINE BLOOD 3+ (NEGATIVE); URINE COLOR YELLOW (YELLOW); URINE GLUCOSE NEGATIVE (NEGATIVE); URINE KETONE NEGATIVE (NEGATIVE); URINE NITRATE NEGATIVE (NEGATIVE); URINE PROTEIN(semi-quant) TRACE (NEGATIVE); URINE UROBILINOGEN 0.2 E.U/dL (0.2-1.0)
[2024-07-28] MEDS ORDERED: Ketorolac 15 MG/ML VIAL IV ONE (06:45)
[2024-07-28 07:34] VITALS: BP 128/85; PULSE 72
== END 2024-07-28 07:34 | disposition home or self-care (01) ==
LOC: COL.ER 02:53
PROVIDERS: Emergency Medicine
DX: R10.9 Unspecified abdominal pain (principal); Z85.848 Personal history of malignant neoplasm of other parts of nervous tissue
CPT/HCPCS: J1885; J2270; J2405; J7120; Q9967